=== PATIENT | male | born 2000 | race Caucasian/White ===

== ENCOUNTER 2025-09-13 01:48 | Inpatient (IN) | payer OTHER ==
[2025-09-13] VITALS (7 sets, daily range): BP systolic 101–124; BP diastolic 49–67; TEMP 96.5–98.3; O2SAT 96–100
[~2025-09-13] VITALS: Ht 180.3 cm; Wt 81.2 kg
[2025-09-13] MEDS ORDERED: IBUP200C29 PO (02:19)
[2025-09-13] MEDS ORDERED: ISOVUE-370 76% 100 ML VIAL As Ordered ONE (06:55)
[2025-09-13 06:58] LABS: BASO # 0.0 10^3/uL (0.0-0.2); BASO % 0.3 % (0.0-1.0); EOS # 0.2 10^3/uL (0.0-0.5); EOS % 3.0 % (0.0-3.0); LYMPH # 1.6 10^3/uL (1.5-5.0); LYMPH % 23.6 % (24.0-44.0); MONO # 0.6 10^3/uL (0.0-0.8); MONO % 9.3 % (2.0-8.0); NEUTROPHILS # 4.3 10^3/uL (1.5-8.5); NEUTROPHILS % 63.7 % (36.0-66.0); PLATELET COUNT, AUTOMATED 285 10^3/uL (150-450)
[2025-09-13] MEDS: NS (Normal Saline) 0.9% 1,000 ML IV ONE (07:07)
[2025-09-13] MEDS: KETOROLAC 30 MG/ML 1 ML VIAL IV ONE (07:08)
[2025-09-13 07:27] LABS: C REACTIVE PROTEIN QUANTITATIV 2.53 MG/DL (<1.0)
[2025-09-13 07:33] LABS: MONO REFLEX EBV COMP NEGATIVE (NEGATIVE)
[2025-09-13] MEDS: AMPICILLIN SOD/SULBACTAM SOD 3 GM in DEXTROSE 5% (D5W) MINI-BAG PLU 100 ML IV ONE (09:36)
[2025-09-13] MEDS ORDERED: HOME MED LIST COMPLETE! XX SCH (09:55)
[2025-09-13] MEDS ORDERED: NS (Normal Saline) 0.9% 1,000 ML IV SCH (09:55)
[2025-09-13] MEDS ORDERED: SUGAMMADEX SODIUM 500 MG/5 ML VIAL As Ordered ONE (10:42)
[2025-09-13] MEDS ORDERED: dexAMETHasone 4 MG/ML 1 ML VIAL As Ordered ONE (10:42)
[2025-09-13] MEDS ORDERED: LIDOCAINE 2% INJ 100 MG/5 ML SYRINGE As Ordered ONE (10:42)
[2025-09-13] MEDS ORDERED: ONDANSETRON 4MG/2ML VIAL As Ordered ONE (10:42)
[2025-09-13] MEDS ORDERED: ROCURONIUM BROMIDE 50MG/5ML VIAL As Ordered ONE (10:42)
[2025-09-13] MEDS ORDERED: SUCCINYLCHOLINE 100MG/5ML SYRINGE As Ordered ONE (10:42)
[2025-09-13] MEDS ORDERED: MIDAZOLAM INJ 2 MG/2 ML VIAL As Ordered ONE (10:43)
[2025-09-13] MEDS ORDERED: ACETAMINOPHEN 1000MG/100ML IV BAG As Ordered ONE (10:44)
[2025-09-13] MEDS ORDERED: dexmedeTOMIDine (4 MCG/ML) 200 MCG/50 ML BTL As Ordered ONE (11:04)
[2025-09-13] MEDS: LIDOCAINE W/EPINEPHrine 1% 20 ML VIAL As Ordered ONE (11:18)
[2025-09-13] MEDS: CLINDAMYCIN 900 MG/50 ML PREMIX BAG As Ordered ONE (11:18)
[2025-09-13] MEDS: ONDANSETRON 4MG/2ML VIAL IV PRN (12:14)
[2025-09-13] MEDS: AMPICILLIN SOD/SULBACTAM SOD 3 GM in DEXTROSE 5% (D5W) MINI-BAG PLU 100 ML IV SCH (15:05)
[2025-09-13] MEDS: dexAMETHasone 4 MG/ML 1 ML VIAL IV SCH (17:33)
[2025-09-14 00:05] VITALS: BP 136/68; TEMP 97.8; O2SAT 98
[2025-09-14 06:00] VITALS: BP 119/55; TEMP 98.1; O2SAT 94
[2025-09-14 07:03] LABS: CALCIUM LEVEL 9.1 MG/DL (8.5-10.1); CARBON DIOXIDE LEVEL 26 MMOL/L (20-31); CHLORIDE LEVEL 104 MMOL/L (98-107); CREATININE FOR GFR 0.74 MG/DL (0.70-1.30); GLOMERULAR FILTRATION RATE > 90.0 (>60); MAGNESIUM LEVEL 1.9 MG/DL (1.8-2.4); POTASSIUM SERUM 4.4 MMOL/L (3.5-5.1); SODIUM LEVEL 142 MMOL/L (136-145)
[2025-09-14 10:00] VITALS: BP 125/59; TEMP 98.2; O2SAT 98
[2025-09-14] MEDS ORDERED: AUGM12TA11 PO (11:17)
[2025-09-15 12:03] LABS: EBV AB TO NUCLEAR ANTIGEN 140.00 U/mL (<18.00); EBV VIRAL CAPSID AG IGM < 36.00 U/mL (<36.00)
== END 2025-09-14 12:05 | disposition home or self-care (01) | DRG 402 ==
LOC: M ED 01:48 → M ED INP 09:54 → M MS5PR 12:35
PROVIDERS: ADMIT Student in an Organized Health Care Education/Training Program; ATTEND Student in an Organized Health Care Education/Training Program
PROC: 0C9P0ZZ Drainage of Tonsils, Open Approach (ICD-10-PCS; principal; 2025-09-13 09:12)
DX: J36 Peritonsillar abscess (principal)